=== PATIENT | male | born 1970 | race Caucasian/White ===

== ENCOUNTER 2018-04-20 21:39 | Emergency (ER) | payer OTHER ==
[2018-04-20 21:50] VITALS: RESP 18
[2018-04-20 22:47] VITALS: BP 144/83; PULSE 100; TEMP 98.4
[2018-04-20] MEDS ORDERED: diphenhydrAMINE 50 MG CAP PO STA (23:07)
[2018-04-20] MEDS ORDERED: FAMOTIDINE 20 MG TAB PO STA (23:07)
[2018-04-20] MEDS ORDERED: DEXAMETHASONE SOD PHOSPHATE 10 MG/ML 1 ML VIAL IM STA (23:07)
--- NOTE | 2018-04-20 23:10 | ED ---
General Adult HPI - General Chief complaint: Allergic Reaction Stated complaint: bee sting Time Seen by Provider: 04/20/18 22:49 Source: patient, RN notes reviewed, old records reviewed Mode of arrival: ambulatory Limitations: no limitations - History of Present Illness Initial comments: This is a 39-year-old male the ER for evaluation. Patient resents today for evaluation regarding significant bee stings multiple bee stings. 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 Patient has swelling and edema as well as imaging to all areas. No shortness of breath no stridor. Symptoms occurred 5 hours prior to arrival - Related Data Home Medications Medication Instructions Recorded Confirmed Aspirin 325 mg PO DAILY 04/20/18 04/20/18 Previous Rx's Medication Instructions Recorded Famotidine [Pepcid] 20 mg PO BID #28 tablet 04/20/18 diphenhydrAMINE [Benadryl] 50 mg PO QID PRN #20 capsule 04/20/18 predniSONE 50 mg PO DAILY #5 tab 04/20/18 Allergies Allergy/AdvReac Type Severity Reaction Status Date / Time No Known Allergies Allergy Verified 04/20/18 22:57 Review of Systems ROS Statement: Those systems with pertinent positive or pertinent negative responses have been documented in the HPI. ROS Other: All systems not noted in ROS Statement are negative. Past Medical History Past Medical History: No Reported History History of Any Multi-Drug Resistant Organisms: None Reported Past Surgical History: No Surgical Hx Reported Past Psychological History: No Psychological Hx Reported Smoking Status: Never smoker Past Alcohol Use History: Occasional Past Drug Use History: None Reported General Exam - General Exam Comments Initial Comments: Diffuse urticarial rash with edema Limitations: no limitations General appearance: alert, in no apparent distress Head exam: Present: atraumatic, normocephalic, normal inspection Eye exam: Present: normal appearance, PERRL, EOMI. Absent: scleral icterus, conjunctival injection, periorbital swelling ENT exam: Present: normal exam, mucous membranes moist Neck exam: Present: normal inspection. Absent: tenderness, meningismus, lymphadenopathy Respiratory exam: Present: normal lung sounds bilaterally. Absent: respiratory distress, wheezes, rales, rhonchi, stridor Cardiovascular Exam: Present: regular rate, normal rhythm, normal heart sounds. Absent: systolic murmur, diastolic murmur, rubs, gallop, clicks GI/Abdominal exam: Present: soft, normal bowel sounds. Absent: distended, tenderness, guarding, rebound, rigid Extremities exam: Present: normal inspection, full ROM, normal capillary refill. Absent: tenderness, pedal edema, joint swelling, calf tenderness Back exam: Present: normal inspection Neurological exam: Present: alert, oriented X3, CN II-XII intact Psychiatric exam: Present: normal affect, normal mood Skin exam: Present: warm, dry, intact, normal color. Absent: rash Course Vital Signs 04/20/18 04/20/18 21:45 22:43 Temperature 98.2 F 98.4 F Pulse Rate 109 H 100 Respiratory 18 18 Rate Blood Pressure 147/87 144/83 O2 Sat by Pulse 97 97 Oximetry - Reevaluation(s) Reevaluation #1: 04/20/18 23:09 Symptoms much improved with no significant stridor or shortness of breath Medical Decision Making - Medical Decision Making 47 male positive bee sting significant reaction, multiple bee stings. Patient given steroids will be discharged on steroids and antihistamines Disposition Clinical Impression: Allergic reaction, Urticaria, Allergic reaction to insect sting Disposition: HOME SELF-CARE Condition: Good Instructions: Insect Bite or Sting (ED) Prescriptions: diphenhydrAMINE [Benadryl] 50 mg PO QID PRN #20 capsule PRN Reason: itching/rash Famotidine [Pepcid] 20 mg PO BID #28 tablet predniSONE 50 mg PO DAILY #5 tab Is patient prescribed a controlled substance at d/c from ED?: No Referrals: Jr Vernon MD [Primary Care Provider] - 1-2 days
== END 2018-04-20 23:25 | disposition home or self-care (01) ==
LOC: EC 21:39
DX: T63.441A Toxic effect of venom of bees, accidental (unintentional), initial encounter (principal); L50.0 Allergic urticaria; Z79.82 Long term (current) use of aspirin
CPT/HCPCS: 99283; 96372; J1100

== ENCOUNTER → 2019-01-19 | Outpatient (CLI) | payer OTHER ==
--- NOTE | 2019-01-19 11:00 | CT ---
EXAMINATION TYPE: CT lumbar spine wo con, CT sacrum wo con DATE OF EXAM: 01/19/2019 COMPARISON: None HISTORY: 48-year-old male Lumbosacral radiculopathy, left leg sciatic nerve pain, complaining of numb ness and bladder retention. TECHNIQUE: Contiguous axial scanning of the lumbar spine and sacrum without IV contrast. Coronal and sagittal reconstructions performed. CT DLP: 795 (accession [id number]), included with the Lumbar of 795 (accession [id number]) mGycm Automated exposure control for dose reduction was used. FINDINGS: LUMBAR SPINE: Punctate 1 mm nonobstructive right renal calculus, refer to sagittal image 1. Otherwise, no preverteb ral or paravertebral soft tissue abnormality. Vertebral body heights are preserved and alignment is maintained. Mild degenerative disc disease L4-L5 and L5-S1 with bulging discs. From T12 through L4 levels, no significant spinal canal or neuroforaminal stenosis is seen. At L4-L5, mild bulging disc minimally narrowing the bilateral inferior neural foramen. No spinal zuly l stenosis. At L5-S1, bulging disc with superimposed left paracentral disc herniation impinging the traversing le ft S1 nerve root. No significant neural foraminal or spinal canal stenosis. SACRUM: Moderate circumferential bladder wall thickening. Prostate gland mildly enlarged at 4.5 cm wide. Some degenerative anterior bridging ankylosis across the SI joints. No subarticular erosions are seen . No sacral fracture. Redemonstrated large left paracentral disc herniation at L5-S1. IMPRESSION: 1. LUMBAR SPINE: MILD DEGENERATIVE DISC DISEASE LOWER LUMBAR SPINE PARTICULARLY AT L5-S1 WHERE THERE IS A SUPERIMPOSED LEFT PARACENTRAL DISC HERNIATION IMPINGING THE TRAVERSING LEFT S1 NERVE ROOT. NO SP INAL CANAL STENOSIS. 2. SACRUM: MODERATE CIRCUMFERENTIAL BLADDER WALL THICKENING COULD REFLECT CYSTITIS, NEUROGENIC BLADDE R, OR BLADDER WALL HYPERTROPHY FROM CHRONIC OUTLET OBSTRUCTION. CONSIDER THE LATTER THERE IS ALSO MILD PROSTATOMEGALY AT 4.5 CM WIDE. SMALL AMOUNT OF CHRONIC BRIDGING ANKYLOSIS AT THE SI JOINTS PROBA NICOLE ON A DEGENERATIVE BASIS.
== END ==
LOC: RADCTMAIN 08:25
PROVIDERS: ATTEND Family Medicine
DX: M54.16 Radiculopathy, lumbar region (principal); M51.17 Intervertebral disc disorders with radiculopathy, lumbosacral region
CPT/HCPCS: 72131; 72192

== ENCOUNTER → 2019-08-24 | Outpatient (CLI) | payer OTHER ==
[~2019-08-24] MED LIST: REGADENOSON 0.4 MG/5 ML SYRINGE IV ONE
--- NOTE | 2019-08-24 11:12 | NM ---
EXAMINATION TYPE: NM stress lexiscan cardiolite DATE OF EXAM: 08/24/2019 COMPARISON: NONE HISTORY: Chest pain and palpitations. Family history of heart attack in detail. TECHNIQUE: After the intravenous administration of 9.8 mCi Tc 99m Sestamibi - Cardiolite resting SPE CT images acquired 45 minutes post injection. The patient received 0.4mg Lexiscan, 26.9 mCi Tc 99m Sestamibi - Stress images obtained [address] injection FINDINGS: Review of stress and rest SPECT images demonstrates no distinct perfusion abnormality. Gated analysi s shows normal wall motion with an estimated left ventricular ejection fraction of 57 %. IMPRESSION: No scintigraphic evidence for reversible ischemia.
--- NOTE | 2019-08-24 11:53 | EST ---
EXERCISE STRESS AGE: 49 SEX: M HT: 5'6" WT: 190 PROTOCOL: Lexiscan Cardiolite Stress Test HEART RATE REST: 69 BLOOD PRESSURE REST: 124/94 MAXIMUM HEART RATE ACHIEVED: 102 MAXIMUM BLOOD PRESSURE: 124/94 INDICATIONS: Chest pain. CLINICAL INFORMATION: Baseline EKG shows sinus rhythm, normal axis, normal intervals. Patient was given intravenous Lexiscan as per protocol. Did not have chest pain or diagnostic ST-segment depression. CONCLUSION: 1. Negative stress test by EKG criteria. 2. Cardiolite portion of the stress test will be reported separately. MMODL / IJN: [id number] /
== END ==
LOC: RADNMMAIN 08:49
PROVIDERS: ATTEND Family Medicine
DX: R07.89 Other chest pain (principal)
CPT/HCPCS: 93017; 78452; A9500; J2785

== ENCOUNTER → 2021-07-24 | Outpatient (CLI) | payer OTHER ==
[~2021-07-24] MED LIST changes: +CASIRIVIMAB/IMDEVIMAB (EUA) 1,200 MG in SODIUM CHLORIDE 0.9% 100 ML IVPB ONE; -REGADENOSON 0.4 MG/5 ML SYRINGE IV ONE; +SODIUM CHLORIDE 0.9% 50 ML IVPB ONE; +SODIUM CHLORIDE 0.9% 500 ML 500 ML in EMPTY BAG 1 BAG IV PRN
[2021-07-24 11:11] VITALS: TEMP 97.8
[2021-07-24 13:03] VITALS: BP 123/72; PULSE 68; RESP 16
== END ==
LOC: PROCWHC3 10:27
PROVIDERS: ATTEND Physician Assistant
DX: U07.1 COVID-19 (principal); E66.9 Obesity, unspecified; I11.9 Hypertensive heart disease without heart failure; Z68.30 Body mass index [BMI] 30.0-30.9, adult
CPT/HCPCS: 96360; Q0243; M0243; 96361

== ENCOUNTER → 2022-01-15 | Outpatient (CLI) | payer OTHER ==
--- NOTE | 2022-01-15 22:44 | US ---
EXAMINATION TYPE: US abdomen complete DATE OF EXAM: 01/15/2022 COMPARISON: US,CT CLINICAL HISTORY: R10.31. Elevated liver enzymes per patient EXAM MEASUREMENTS: Liver Length: 19.1 cm Gallbladder Wall: 0.2 cm CBD: 0.3 cm Spleen: 12.4 cm Right Kidney: 11.2 x 5.7 x 5.3 cm Left Kidney: 12.5 x 5.2 x 5.4 cm Pancreas: tail obscured by bowel gas Liver: fatty liver as is hyperechoic to right renal cortex; focal fatty sparing area near gallbladde r = 1.5 x 1.3 x 1.0cm. Gallbladder: wnl Evidence for sonographic De Anda's sign: no CBD: wnl Spleen: wnl Right Kidney: No hydronephrosis or masses seen Left Kidney: No hydronephrosis or masses seen Upper IVC: wnl Abd Aorta: wnl Suboptimal evaluation of pancreas on the initial images saved. Intrahepatic portion of the IVC and vi sualized abdominal aorta are within normal limits. Visualized liver remains heterogeneously hyperecho ic limiting evaluation for focal masses. No surrounding ascites. There is no evidence of shadowing m obile cholelithiasis. Common bile duct is unremarkable. The spleen is within normal limits in size. Kidneys are symmetric and free of hydronephrosis. No renal lesions are seen. IMPRESSION: Persistent heterogeneous hyperechoic appearance of liver consistent with diffuse fatty in filtration and/or underlying hepatocellular disease. No significant change from prior ultrasound.
== END | disposition home or self-care (01) ==
LOC: RADUSWWP 06:56
PROVIDERS: ATTEND Nurse Practitioner Adult Health
DX: K76.0 Fatty (change of) liver, not elsewhere classified (principal)
CPT/HCPCS: 76700

== ENCOUNTER → 2022-01-21 | Outpatient (CLI) | payer OTHER ==
--- NOTE | 2022-01-21 15:13 | CT ---
EXAMINATION TYPE: CT abdomen pelvis w con DATE OF EXAM: 01/21/2022 COMPARISON: Ultrasound 01/15/2022 HISTORY: right sided abdominal pain CT DLP: 1267.9 mGycm Automated exposure control for dose reduction was used. CONTRAST: CT scan of the abdomen pelvis is performed with IV Contrast, patient injected with 100 mL of Isovue 3 00. FINDINGS- LUNG BASES-subsegmental changes involving the lung bases most likely atelectasis. LIVER/GB-liver is diffusely reduced attenuation compatible with hepatic steatosis. Areas of focal fat ty sparing near the gallbladder fossa. Hepatic veins are patent. Portal vein appears no obvious galls tone.. PANCREAS- No gross abnormality is seen. SPLEEN- No gross abnormality is seen. ADRENALS- No gross abnormality is seen. KIDNEYS/BLADDER- no hydronephrosis nephrolithiasis or renal mass. BOWEL- no bowel dilatation. Normal appendix. LYMPH NODES- No greater than 1cm abdominal or pelvic lymph nodes areappreciated. OSSEOUS STRUCTURES-hypertrophic changes of the spine. OTHER- no mild prostate hypertrophy noted. Aorta of normal caliber. Surgical clips seen in the regio n of the scrotal sac. Correlate clinically. IMPRESSION- 1. Diffuse low-attenuation throughout the liver can be associated with hepatic psychosis correlate fo r underlying hepatocellular disease. 2. Normal-appearing appendix. 3. Subsegmental changes lung bases most typical of atelectasis correlate clinically to exclude early infiltrate.
[2022-01-21 22:59] LABS: Protein, Total 6.6 g/dL (6.2-8.2)
[2022-01-21 23:01] LABS: Streptolysin O Ab(ASO) 120 IU/L (0-200)
[2022-01-21 23:02] LABS: Basophils # (A) 0.03 X 10*3/uL (0.00-0.10); Basophils % (A) 0.7 %; Eosinophils # (A) 0.35 X 10*3/uL (0.04-0.35); Eosinophils % (A) 8.5 %; HCT 48.5 % (39.6-50.0); HGB 16.3 g/dL (13.0-17.0); Immature Grans, Automated 0.2 %; Lymphocytes # (A) 1.29 X 10*3/uL (0.90-5.00); Lymphocytes % (A) 31.2 %; MCH 30.4 pg (27.0-32.0); MCHC 33.6 g/dL (32.0-37.0); MCV 90.3 fL (80.0-97.0); Mean Platelet Volume 12.5 fL (9.5-12.2); Monocytes # (A) 0.42 X 10*3/uL (0.20-1.00); Monocytes % (A) 10.2 %; NRBC Per 100 WBC 0 /100 WBCS (0.0-0.0); Neutrophils # (A) 2.03 X 10*3/uL (1.80-7.70); Neutrophils % (A) 49.2 %; Platelet Count 167 X 10*3/uL (140-440); RBC 5.37 X 10*6/uL (4.40-5.60); RDW 12.9 % (11.5-14.5); WBC 4.13 X 10*3/uL (4.50-10.00)
[2022-01-21 23:17] LABS: Hepatitis A Antibody IgM Nonreactive (Nonreactive); Hepatitis B Core IgM Nonreactive (Nonreactive); Hepatitis B Surface Antigen Nonreactive (Nonreactive); Hepatitis C IgG Antibody Nonreactive (Nonreactive)
[2022-01-21 23:19] LABS: Albumin 4.1 g/dL (3.8-4.9); Albumin/Globulin Ratio 1.62 (1.60-3.17); Anion Gap 12.3 mmol/L (10.00-18.00); BUN/Creat Ratio 10.47 Ratio (12.00-20.00); Blood Urea Nitrogen 11.2 mg/dL (9.0-27.0); C Reactive Protein 7.7 mg/dL (0.00-0.80); Carbon Dioxide 26.2 mmol/L (20.0-27.5); Globulin 2.5 g/dL (1.6-3.3); Non-African American GFR(CKD) 79.4 (60.0-200.0); Potassium 4.7 mmol/L (3.5-5.5); Total Bilirubin 1.4 mg/dL (0.30-1.20); Total Protein 6.6 g/dL (6.2-8.2)
[2022-01-21 23:20] LABS: % Iron Saturation 11.03 (15.00-50.00); Bilirubin, Conjugated 0.41 mg/dL (0.20-0.40)
[2022-01-21 23:30] LABS: Ceruloplasmin 22.9 mg/dL (20.0-60.0)
[2022-01-21 23:33] LABS: Erythrocyte Sedimentation Rate 5 mm/Hr (0-20)
[2022-01-22 00:49] LABS: EBV-EA (IgG) <0.2 AI; EBV-EBNA(IgG) <0.2 AI; EBV-VCA (IgG) 0.3 AI; EBV-VCA (IgM) <0.2 AI
[2022-01-22 01:16] LABS: Appearance,Urine Clear (Clear); Bilirubin,Urine Negative (Negative); Blood,Urine Negative (Negative); Color,Urine Yellow (Yellow); Ketones,Urine Trace mg/dL (Negative); Nitrite,Urine Negative (Negative); Specific Gravity,Urine >1.035 (1.001-1.030); Urobilinogen,Urine 0.2 (0.2,1.0)
== END | disposition home or self-care (01) ==
LOC: RADCTMAIN 14:13
PROVIDERS: ATTEND Family Medicine
DX: J98.11 Atelectasis (principal); R74.01 Elevation of levels of liver transaminase levels; N20.0 Calculus of kidney; R19.7 Diarrhea, unspecified
CPT/HCPCS: 74177; 80053; 80074; 81003; 82150; 82390; 82728; 83540; 83550; 83690; 84165; 85025; 85652; 86060; 86140; 86644; 86645; 86663; 86664; 86665

== ENCOUNTER → 2022-02-25 | Outpatient (CLI) | payer OTHER ==
[2022-02-25 14:52] LABS: C Reactive Protein <0.30 mg/dL (0.00-0.80); Rheumatoid Factor, Qnt <10 IU/mL (0-15)
[2022-02-26 15:43] LABS: HLA B27 NEGATIVE
== END | disposition home or self-care (01) ==
LOC: LABWHC1 10:00
PROVIDERS: ATTEND Family Medicine
DX: M53.3 Sacrococcygeal disorders, not elsewhere classified (principal)
CPT/HCPCS: 36415; 85652; 86140; 86431; 86812

== ENCOUNTER → 2022-03-12 | Outpatient (CLI) | payer OTHER ==
--- NOTE | 2022-03-12 14:05 | CT ---
EXAMINATION TYPE: CT chest wo con DATE OF EXAM: 03/12/2022 INDICATION: h/o pneumonia CT DLP: 524.8 mGy.cm Automated Exposure Control for Dose Reduction was Utilized. TECHNIQUE AND CONTRAST: CT scan of the chest is performed without IV contrast administration. COMPARISON: No previous CT scan is for comparison FINDINGS: 5.8 mm nodule is seen along the right oblique fissure likely representing a fissural lymph node. Bila teral lower lobe posterior dependent densities and minimal reticulations. Linear atelectasis is seen in the left lung base. Unremarkable lungs otherwise. Patent trachea and main bronchi. No pleural or pericardial effusion. No cardiomegaly. Scattered subce ntimeter mediastinal lymph nodes. No pathologically enlarged lymph nodes in the chest. Signs of sever e hepatic steatosis. No aggressive bone lesion. IMPRESSION: No evidence of pneumonia. Signs of severe hepatic steatosis. Incidental findings as described above.
--- NOTE | 2022-03-12 15:22 | CA ---
Transthoracic Echo Report Name: Magdaleno Castrejon Age: 51 Gender: M : 1970 Exam Date: 03/12/2022 13:08 Exam Location: [place] [facility] Ht (in): 66 Wt (lb): 210 Ordering Physician: Jr Vernon MD Attending/Referring Phys: Lani Mora [facility] [employer] Jeannie Graham RDCS Procedure CPT: Indications: R07.89 chest pain Cardiac Hx: No cardiac hx Technical Quality: Good Contrast 1: Total Dose (mL): Contrast 2: Total Dose (mL): MEASUREMENTS (Male / Female) Normal Values 2D ECHO LV Diastolic Diameter PLAX 4.1 cm 4.2 - 5.9 / 3.9 - 5.3 cm LV Systolic Diameter PLAX 2.5 cm IVS Diastolic Thickness 0.8 cm 0.6 - 1.0 / 0.6 - 0.9 cm LVPW Diastolic Thickness 0.8 cm 0.6 - 1.0 / 0.6 - 0.9 cm LV Relative Wall Thickness 0.4 LA Volume 33.0 cm??? 18 - 58 / 22 - 52 cm??? M-MODE Aortic Root Diameter MM 3.3 cm LA Systolic Diameter MM 3.4 cm LA Ao Ratio MM 1.0 MV E Point Septal Separation 1.2 cm AV Cusp Separation MM 2.2 cm DOPPLER AV Peak Velocity 118.0 cm/s AV Peak Gradient 5.6 mmHg MV Area PHT 4.5 cm??? Mitral E Point Velocity 70.8 cm/s Mitral A Point Velocity 89.7 cm/s Mitral E to A Ratio 0.8 MV Deceleration Time 167.9 ms MV E' Velocity 9.6 cm/s Mitral E to MV E' Ratio 7.3 TR Peak Velocity 148.2 cm/s TR Peak Gradient 8.8 mmHg Right Ventricular Systolic Press 13.8 mmHg FINDINGS Left Ventricle Normal Left ventricular size, wall thickness, systolic function with no obvious regional wall motion abnormalities. Normal Left ventricular diastolic filling pattern. Left ventricular ejection fraction is estimated at 55-60 %. Right Ventricle The right ventricle is normal in size and function. Right Atrium The right atrium is normal in size. Left Atrium The left atrium is normal in size. Mitral Valve Structurally normal mitral valve without significant stenosis or prolapse. There is a tarce of mitral regurgitation. Aortic Valve Structurally normal aortic valve without significant sclerosis or stenosis. There is no aortic regurgitation. Tricuspid Valve Structurally normal tricuspid valve without significant stenosis. Pulmonary artery systolic pressure is normal. Trace tricuspid regurgitation. Pulmonic Valve Structurally normal pulmonic valve without significant stenosis. There is no pulmonic regurgitation. Pericardium Normal pericardium without effusion. Aorta Normal aortic root dimension. CONCLUSIONS Normal LV size and systolic function Previewed by: Dr. Corby Man MD (Electronically Signed) Final Date: 12 March 2022 15:21
== END | disposition home or self-care (01) ==
LOC: RADECHMAIN 13:02
PROVIDERS: ATTEND Family Medicine
DX: I08.1 Rheumatic disorders of both mitral and tricuspid valves (principal); K76.0 Fatty (change of) liver, not elsewhere classified; J98.11 Atelectasis
CPT/HCPCS: 71250; 93306